=== PATIENT | female | born 1990 | race Caucasian/White ===

== ENCOUNTER → 2016-11-19 | Outpatient (CLI) | payer OTHER ==
[~2016-11-19] MED LIST: ACET50TA PO; DOCU10ELUD OR; FOLI20CA PO; IBUP80TA PO; KEPP1000 PO; MOM30SS OR; PRENTAB74 PO; [UNRECOGNIZED DRUG - OTHER] PO
[2016-11-19 14:23] LABS: BASO % 0.3 % (0.0-1.0); EOS # 0.1 K/mm3 (0.0-0.50); EOS % 0.9 % (0.0-3.0); LYMPH # 2.2 K/mm3 (1.5-6.5); LYMPH % 20.2 % (24.0-44.0); MEAN CORPUSCULAR HEMOGLOBIN 27.9 pg (27.0-33.0); MEAN CORPUSCULAR HGB CONC 33.2 g/dl (32.0-36.5); MEAN CORPUSCULAR VOLUME 84.1 fl (80.0-96.0); MONO # 0.4 K/mm3 (0.0-0.8); MONO % 3.2 % (0.0-5.0); NEUTROPHILS # 8.1 K/mm3 (1.8-7.7); NEUTROPHILS % 73.3 % (36.0-66.0); RED CELL DISTRIBUTION WIDTH 14.1 % (11.5-14.5); WHITE BLOOD COUNT 11.1 K/mm3 (4.0-10.0)
== END ==
LOC: M LAB 12:49
PROVIDERS: ATTEND Obstetrics & Gynecology
DX: O09.893 Supervision of other high risk pregnancies, third trimester (principal)

== ENCOUNTER → 2016-11-24 | Outpatient (CLI) | payer OTHER ==
[~2016-11-24] MED LIST changes: +IBUP-1114 PO; +QVAR0.07 IN
== END ==
LOC: M LAB 07:02
PROVIDERS: ATTEND Obstetrics & Gynecology
DX: Z34.83 Encounter for supervision of other normal pregnancy, third trimester (principal)

== ENCOUNTER 2016-11-26 11:14 | Inpatient (IN) | payer OTHER ==
[2016-11-26] VITALS (15 sets, daily range): BP systolic 92–122; BP diastolic 54–81
[~2016-11-26] VITALS: Ht 165.1 cm; Wt 110.0 kg
[~2016-11-26 11:14] MED LIST changes: -IBUP-1114 PO; -QVAR0.07 IN
[2016-11-26] MEDS ORDERED: LACTATED RINGER'S 1000 ML IV STA (11:19)
[2016-11-26] MEDS ORDERED: KEPP1000 PO ×2 (11:33)
[2016-11-26 12:13] LABS: BASO # 0.2 K/mm3 (0.0-0.2); BASO % 1.3 % (0.0-1.0); EOS # 0.1 K/mm3 (0.0-0.50); EOS % 0.9 % (0.0-3.0); LARGE UNSTAINED CELL # 0.4 K/mm3 (0.0-0.4); LARGE UNSTAINED CELL % 2.7 % (0.0-4.0); LYMPH # 2.9 K/mm3 (1.5-6.5); LYMPH % 19.2 % (24.0-44.0); MEAN CORPUSCULAR HEMOGLOBIN 27.7 pg (27.0-33.0); MEAN CORPUSCULAR HGB CONC 34.6 g/dl (32.0-36.5); MONO # 0.8 K/mm3 (0.0-0.8); MONO % 5.9 % (0.0-5.0); NEUTROPHILS # 9.2 K/mm3 (1.8-7.7); PLATELET COUNT, AUTOMATED 159 k/mm3 (150-450); WHITE BLOOD COUNT 13.2 K/mm3 (4.0-10.0)
[2016-11-26] MEDS ORDERED: QVAR0.07 IN (12:18)
[2016-11-26] MEDS ORDERED: OXYTOCIN DRIP 30 UNITS in APPROPRIATE DILUENT 1 EA IV SCH (12:30)
[2016-11-26] MEDS: LR 1,000 ML IV SCH (12:32)
[2016-11-26] MEDS ORDERED: ACETAMINOPHEN 500 MG TAB PO PRN (12:45)
--- NOTE | 2016-11-26 13:25 | HPE ---
DATE OF ADMISSION: 11/26/2016 Cici is a 26-year-old female, 3, para 2-0-0-2, with an estimated date of confinement (EDC) of 12/15/2016, 37-2/7 weeks gestation, who presented to labor and deliver after being seen in the office with gross rupture of membrane. As per the patient, her water broke approximately 9 o'clock. She denies any bleeding. She is having contractions. Good movement. Her records reviewed. Patient has a history of epilepsy. No known attack during this . She is currently on Keppra. Patient also has a history of asthma for which she is on as needed inhalers. Her labs reviewed. Blood type is O+, rubella immune, hepatitis negative, HIV negative. GC, chlamydia negative. 1-hour sugar testing was abnormal at 148. Her 3 hours was within normal limits. Her GBS is negative. PAST MEDICAL HISTORY: Significant for: 1. Seizure disorder. 2. Asthma. SOCIAL HISTORY: She denies any alcohol, drugs or cigarette smoking. REVIEW OF SYSTEMS: Unremarkable. MEDICATION: - vitamin - Keppra - albuterol as needed ALLERGIES: To PENICILLIN. PHYSICAL EXAMINATION: Blood pressure is 114/81, pulse 126, respiration 18, temperature 98.6. Normal appearing, obese female in no acute distress. Abdomen: Soft, nontender, nondistended. Extremities: No clubbing, cyanosis or edema. Vaginal exam: Gross rupture of membrane, 2-3 cm dilated, 60% effaced, fetus at vertex position. Tracing reviewed. Category 1 tracing. ASSESSMENT: 1. Intrauterine at 37-2/7 weeks gestation. 2. Spontaneous rupture of membrane. 3. Early labor. PLAN: Admit to labor and delivery. Routine lab sent. Keptra level was 16, which was within normal limit. Monitor. Anticipate delivery. MTDD
--- NOTE | 2016-11-26 16:24 | IPNPDOC ---
Date/Time Seen The patient was seen on 11/26/16 at 16:19. Progress Note SUBJECTIVE: Patient is comfortable. Sitting up in bed with family members present at the bedside. OBJECTIVE: See vital signs below. heart rate baseline 140, moderate variability, positive accelerations, variable deceleration noted. Contractions are every 3-8 minutes. Leaking clear fluid. Pitocin is at 12 mU/m. Assessment: Intrauterine at 37 weeks and 2 days, spontaneous rupture of membranes, not in active labor Plan: Continue with Pitocin augmentation. Patient may have epidural for pain management when she desires. Anticipate cervical change and spontaneous vaginal delivery. VS, I&O, 24H, Fishbone VS, I&O, 24H, Fishbone Vital Signs Date Time Temp Pulse Resp B/P Pulse Ox O2 Delivery O2 Flow Rate FiO2 11/26/16 14:50 97.6 90 18 107/64 Laboratory Tests 2 11/26/16 11:16: Serology Scanned Report Hepatitis B Testing 11/26/16 11:46: White Blood Count 13.2H, Red Blood Count 4.38, Hemoglobin 12.1, Hematocrit 35.0L , Mean Corpuscular Volume 80.0, Mean Corpuscular Hemoglobin 27.7, Mean Corpuscular Hemoglobin Concent 34.6, Red Cell Distribution Width 15.0H, Platelet Count 159, Neutrophils (%) (Auto) 70.0H, Lymphocytes (%) (Auto) 19.2L, Monocytes (%) (Auto) 5.9H, Eosinophils (%) (Auto) 0.9, Basophils (%) (Auto) 1.3H , Neutrophils # (Auto) 9.2H, Lymphocytes # (Auto) 2.9, Monocytes # (Auto) 0.8, Eosinophils # (Auto) 0.1, Basophils # (Auto) 0.2, Large Unclassified Cells # 0.4 , Large Unclassified Cells % 2.7, Syphilis Serology NONREACTIVE Laboratory Tests 11/26/16 11:46 Red Blood Count 4.38, Mean Corpuscular Volume 80.0, Mean Corpuscular Hemoglobin 27.7, Mean Corpuscular Hemoglobin Concent 34.6, Red Cell Distribution Width 15.0 H, Neutrophils (%) (Auto) 70.0 H, Lymphocytes (%) (Auto) 19.2 L, Monocytes (%) (Auto) 5.9 H, Eosinophils (%) (Auto) 0.9, Basophils (%) (Auto) 1.3 H, Neutrophils # (Auto) 9.2 H, Lymphocytes # (Auto) 2.9, Monocytes # (Auto) 0.8, Eosinophils # (Auto) 0.1, Basophils # (Auto) 0.2 GAURAV LU CNM Nov 26, 2016 16:24
[2016-11-26] MEDS ORDERED: miSOPROStol 50 MCG 1/2 TAB (S0191) PV ONE (18:45)
--- NOTE | 2016-11-26 19:00 | IPNPDOC ---
Date/Time Seen The patient was seen on 11/26/16 at 18:53. Progress Note SUBJECTIVE: The patient reports that she is comfortable. She reports feeling occasional contractions. OBJECTIVE: Vital signs below. Pitocin is at 18 mU/min. Sterile vaginal exam done. Cervix remains 2-3 cm 50% effaced. No changes been made. heart rate baseline is 140 bpm, moderate variability, positive accelerations, occasional late decelerations when patient is on her back. No decelerations noted when patient is on her side or sitting up. Contractions are every 2-7 minutes. Assessment: Intrauterine at 37 weeks and 2 days, category 2 tracing, spontaneous rupture of membrane, not in active labor. Plan: Orders to stop Pitocin via IV and start misoprostol by mouth ordered. IV saline locked. Regular diet ordered. Reviewed plan of care with patient and patient agrees with plan. Anticipate cervical ripening. VS, I&O, 24H, Fishbone VS, I&O, 24H, Fishbone Vital Signs Date Time Temp Pulse Resp B/P Pulse Ox O2 Delivery O2 Flow Rate FiO2 11/26/16 18:30 97.9 100 18 106/62 GAURAV LU CNM Nov 26, 2016 19:00
[2016-11-26] MEDS: miSOPROStol 50 MCG 1/2 TAB (S0191) PO SCH ×2 (19:11→23:22)
[2016-11-26] MEDS: levETIRAcetam 250MG TABLET (KEPPRA) PO SCH (21:07)
[2016-11-27] VITALS (15 sets, daily range): BP systolic 98–143; BP diastolic 52–91
[2016-11-27] MEDS: miSOPROStol 50 MCG 1/2 TAB (S0191) PO SCH (03:27)
[2016-11-27] MEDS ORDERED: BUTORPHANOL 2 MG/ML INJ (J0595) IV ONE (05:00)
[2016-11-27] MEDS ORDERED: PROMETHAZINE INJ 25 MG/ML VIAL (J2550) IV ONE (05:00)
[2016-11-27] MEDS ORDERED: FENTANYL 2MCG/ML ROPIVACAINE 0.2% NACL 250 ML CADD As Ordered ONE (07:43)
[2016-11-27] MEDS ORDERED: OXYTOCIN DRIP 30 UNITS in APPROPRIATE DILUENT 1 EA IV SCH (07:45)
[2016-11-27] MEDS: LR 1,000 ML IV SCH (08:06)
[2016-11-27] MEDS: PRENATAL VITAMIN TAB PO SCH (09:00)
--- NOTE | 2016-11-27 09:02 | IPNPDOC ---
Date/Time Seen The patient was seen on 11/27/16 at 0730. Progress Note SUBJECTIVE: Patient reports she is uncomfortable and would like her epidural. OBJECTIVE: See vital signs below. Vaginal exam 4 cm 100% effaced -2 station. heart rate baseline 130 bpm with early decelerations noted. Moderate variability. Contractions every 3-7 minutes. Assessment: Intrauterine at 37 weeks and 3 days, category 1 tracing, active labor Plan: Patient to receive epidural for pain management her request. Pitocin to be initiated her order. Anticipate vaginal delivery. VS, I&O, 24H, Fishbone VS, I&O, 24H, Fishbone Vital Signs Date Time Temp Pulse Resp B/P Pulse Ox O2 Delivery O2 Flow Rate FiO2 11/27/16 07:13 97.6 95 16 143/91 I&O- Last 24 Hours up to 6 AM 11/27/16 06:00 Intake Total 75 ml Output Total 100 ml Balance -25 ml Laboratory Tests 2 11/26/16 11:16: Serology Scanned Report Hepatitis B Testing 11/26/16 11:46: White Blood Count 13.2H, Red Blood Count 4.38, Hemoglobin 12.1, Hematocrit 35.0L , Mean Corpuscular Volume 80.0, Mean Corpuscular Hemoglobin 27.7, Mean Corpuscular Hemoglobin Concent 34.6, Red Cell Distribution Width 15.0H, Platelet Count 159, Neutrophils (%) (Auto) 70.0H, Lymphocytes (%) (Auto) 19.2L, Monocytes (%) (Auto) 5.9H, Eosinophils (%) (Auto) 0.9, Basophils (%) (Auto) 1.3H , Neutrophils # (Auto) 9.2H, Lymphocytes # (Auto) 2.9, Monocytes # (Auto) 0.8, Eosinophils # (Auto) 0.1, Basophils # (Auto) 0.2, Large Unclassified Cells # 0.4 , Large Unclassified Cells % 2.7, Syphilis Serology NONREACTIVE Laboratory Tests 11/26/16 11:46 Red Blood Count 4.38, Mean Corpuscular Volume 80.0, Mean Corpuscular Hemoglobin 27.7, Mean Corpuscular Hemoglobin Concent 34.6, Red Cell Distribution Width 15.0 H, Neutrophils (%) (Auto) 70.0 H, Lymphocytes (%) (Auto) 19.2 L, Monocytes (%) (Auto) 5.9 H, Eosinophils (%) (Auto) 0.9, Basophils (%) (Auto) 1.3 H, Neutrophils # (Auto) 9.2 H, Lymphocytes # (Auto) 2.9, Monocytes # (Auto) 0.8, Eosinophils # (Auto) 0.1, Basophils # (Auto) 0.2 GAURAV LU CNM Nov 27, 2016 09:02
[2016-11-27] MEDS ORDERED: RHOGAM 300 MCG (1500 IU) INJ (J2790) IM SCH (09:15)
[2016-11-27] MEDS ORDERED: MEASLES,MUMPS,RUBELLA VACCINE INJ (MMR-II) (90707) SC SCH (09:15)
[2016-11-27] MEDS ORDERED: ACETAMINOPHEN 500 MG TAB PO PRN (09:15)
[2016-11-27] MEDS ORDERED: DOCUSATE SODIUM 100 MG CAP PO PRN (09:15)
[2016-11-27] MEDS ORDERED: DIBUCAINE 1% OINTMENT 30GM TOP PRN (09:15)
[2016-11-27] MEDS ORDERED: METHYLERGONOVINE MALEATE 0.2 MG TAB PO PRN (09:15)
--- NOTE | 2016-11-27 09:15 | DNPDOC ---
Delivery Note Delivery Note Cici is a 26-year-old 3 para 3003 who is 37 weeks and 3 days gestation. She was admitted to labor and delivery on the with spontaneous ruptured membranes at 09 100 with clear fluid. She progressed to fully dilated at 8:22 AM with the use of misoprostol and Pitocin. She pushed to a live infant male at 08 28 in the OA position with restitution to LOT. No nuchal cord was noted. The baby was placed on the maternal abdomen crying. The cord was clamped 2 after pulsation ceased and cut by father of the baby. 3 vessels noted. Cord blood obtained. The placenta delivered spontaneously and intact at 08 34 via Graham mechanism. Uterine hemostasis was achieved by rapid infusion of IV Pitocin and fundal massage. The perineum was inspected and found to be intact. EBL 300. Baby at 89 and weighed 7 lbs. 1 oz., 3194 g. The baby's name is Dennys. Mom will be bottle feeding baby. Both mom and baby are stable. GAURAV LU CNM Nov 27, 2016 09:15
[2016-11-27] MEDS: levETIRAcetam 250MG TABLET (KEPPRA) PO SCH ×2 (09:36→20:58)
[2016-11-27] MEDS: IBUPROFEN 800 MG TAB PO PRN (16:21)
[2016-11-28 05:49] VITALS: BP 134/72
[2016-11-28] MEDS: PRENATAL VITAMIN TAB PO SCH (09:00)
[2016-11-28] MEDS: levETIRAcetam 250MG TABLET (KEPPRA) PO SCH ×2 (09:04→20:31)
[2016-11-28] MEDS: IBUPROFEN 800 MG TAB PO PRN ×2 (09:09→17:38)
[2016-11-28 18:00] VITALS: BP 134/73
[2016-11-29 06:00] VITALS: BP 130/83
[2016-11-29] MEDS: IBUPROFEN 800 MG TAB PO PRN (06:00)
[2016-11-29] MEDS: PRENATAL VITAMIN TAB PO SCH (08:13)
[2016-11-29] MEDS: levETIRAcetam 250MG TABLET (KEPPRA) PO SCH (08:13)
[2016-11-29] MEDS ORDERED: ACET50TA PO (10:23)
[2016-11-29] MEDS ORDERED: IBUP-1114 PO (10:23)
== END 2016-11-29 11:00 | disposition home or self-care (01) | DRG 560 ==
LOC: M LDI 11:14 → M OBS 11-27 10:32
PROVIDERS: ADMIT Obstetrics & Gynecology; ATTEND Obstetrics & Gynecology
PROC: 10E0XZZ Delivery of Products of Conception, External Approach (ICD-10-PCS; principal; 2016-11-27)
DX: O99.354 Diseases of the nervous system complicating childbirth (principal); Z3A.37 37 weeks gestation of pregnancy; Z88.0 Allergy status to penicillin; G40.909 Epilepsy, unspecified, not intractable, without status epilepticus; Z37.0 Single live birth

== ENCOUNTER 2016-12-12 05:01 | Emergency (ER) | payer OTHER ==
[~2016-12-12 05:01] MED LIST changes: +IBUP-1114 PO; +QVAR0.07 IN
[2016-12-12] MEDS ORDERED: levETIRAcetam 250MG TABLET (KEPPRA) As Ordered ONE (07:12)
--- NOTE | 2016-12-12 08:10 | REPUSA ---
CLINICAL HISTORY: LEFT FLANK PAIN TECHNIQUE: Multiple axial, sagittal and coronal CT images were obtained through the abdomen and pelvi s without administration of oral or IV contrast material. COMMENTS: The liver is of uniform attenuation without mass or defect. There is no intra or extrahepatic biliary ductal dilatation. The spleen is normal. The gallbladder is within normal limits. The pancreas is of normal contour and attenuation characteristics. There is no evidence of adrenal mass. The kidneys are normal in size, shape and configuration. No right renal or ureteral calculi are ident ified. 6 x 4 mm left UVJ calculus is noted producing mild to moderate hydroureteronephrosis. 2 mm non obstructing calculus is noted in the mid pole of left kidney. There is no evidence for appendicitis. There is no bowel wall thickening. No evidence for small or la rge bowel obstruction. There is no evidence of abdominal ascites or lymphadenopathy. There is no evidence of intrinsic or extrinsic bladder mass. There is no pelvic ascites or lymphadeno sachin. The uterus is bulky. Ovaries are WNL. Images of the lung bases show no evidence of pleural or parenchymal mass. There are no pleural effusi ons. The bony structures are free of lytic or blastic lesions. IMPRESSION: 6 x 4 mm left UVJ calculus is noted producing mild to moderate hydroureteronephrosis. 2 mm nonobstructing calculus is noted in the mid pole of left kidney. Thank you for your kind referral of this patient.
--- NOTE | 2016-12-12 08:45 | EDDOCDS ---
Nurse's Notes [facility] Name: Cici Curry Age: 26 yrs Sex: Female : 1990 Arrival Date: 12/12/2016 Time: 05:01 Bed 12 Private MD: Diagnosis: Unspecified renal colic-6X4mm left UVJ Presentation: 12/12 05:27 Presenting complaint: Patient states: 15 days post . Has had diarrhea since km delivery. This morning is having left flank and left groin pain. Burning on urination. Urgency of urination. Suicide/Homicide risk assessment- the patient denies having any suicidal and/or homicidal ideations and does not present with any other emotional, behavioral or mental health complaints. 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 Transition of care: patient was not received from another setting of care. 05:27 Acuity: HÉCTOR Level 4 [facility] 05:27 Method Of Arrival: Walkin/Carried/Asstd [facility] 07:15 Adult Sepsis Screening: The patient does not have new or worsening altered mentation. pml Patient's respiratory rate is less than 22. Systolic blood pressure is greater than 100. Patient has a qSOFA score of 0- Negative Sepsis Screen. Triage Assessment: 05:33 General: Appears in no apparent distress, comfortable, Behavior is appropriate for age, kmg1 cooperative, pleasant. Pain: Location: left flank and left lower quadrant Pain currently is 5 out of 10 on a pain scale. Quality of pain is described as aching, throbbing. Pt Declines HIV testing. GI: Reports lower abdominal pain. : Reports burning with urination urgency urinary frequency. 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 Keppra 500 mg Oral tab 2 tabs in the morning and 3 tabs at night (Last dose: 12/11/2016 19:00) 2. Vitamin 27-0.8 mg Oral tab 1 tab once daily (Last dose: 12/11/2016) 3. ibuprofen 200 mg Oral tab 2 tabs every 4-6 hours (Last dose: 12/11/2016 23:00) - PMHx: Seizure Disorder; - PSHx: none; - Social history: Smoking status: Patient states was never smoker of tobacco. No barriers to communication noted, The patient speaks fluent Liberian, Speaks appropriately for age. - Family history: Not pertinent. - : The pt / caregiver states he / she is not on anticoagulants. Home medication list is obtained from the patient. - Exposure Risk Screening:: None identified. Screenin:05 Screening information is obtained from the patient. Fall risk: No risks identified. jp6 Assistance ADL's: requires no assistance with activities of daily living. Abuse/DV Screen: The patient / caregiver reports he/she is: not in a situation that causes fear, pain or injury. Nutritional screening: No deficits noted. Advance Directives: Currently, there is no health care proxy. There is no active DNR order. There is no living will. home support is adequate. Assessment: 06:05 Reassessment: Patient states feeling better. General: Appears in no apparent distress, jp6 well developed, well nourished, Behavior is appropriate for age, cooperative. Pain: Location: pelvis-anette area Pain began at approx 2330. Neurological: No deficits noted. EENT: No deficits noted. Cardiovascular: No deficits noted. Respiratory: Airway is patent Respiratory effort is even, unlabored, Respiratory pattern is regular, symmetrical, Breath sounds are clear. GI: No deficits noted. : Reports burning with urination since 2330. Derm: Skin is pink, warm & dry. Musculoskeletal: No deficits noted. 07:14 General: Appears in no apparent distress, Behavior is appropriate for age, cooperative. pml Pain: Location: back Pain currently is 2 out of 10 on a pain scale. Neurological: Level of Consciousness is awake, alert, Oriented to person, place, time. Cardiovascular: Capillary refill < 3 seconds. Respiratory: Airway is patent Respiratory effort is even, unlabored. GI: Abdomen is non- distended. Derm: Skin is pink, warm & dry. 08:20 General: resting on stretcher, no apparent distress. resps easy and unlabored, skin pml p/w/d. . 08:43 General: Appears in no apparent distress, Behavior is appropriate for age, cooperative. pml Pain: Location: back Pain currently is 2 out of 10 on a pain scale. Neurological: Level of Consciousness is awake, alert, Oriented to person, place, time. Cardiovascular: Capillary refill < 3 seconds. Respiratory: Airway is patent Respiratory effort is even, unlabored. GI: Abdomen is non- distended. Derm: Skin is pink, warm & dry. Vital Signs: 05:33 BP 115 / 75; Pulse 87; Resp 16; Temp 96.9(O); Pulse Ox 97% on R/A; Weight 95.71 kg; [facility] Height 5 ft. 5 in. (165.10 cm); Pain 5/10; 08:40 BP 135 / 79; Pulse 76; Resp 18; Pulse Ox 99% on R/A; Pain 0/10; jjr 05:33 Body Mass Index 35.11 (95.71 kg, 165.10 cm) [facility] Vitals: 05:33 Log In Time: December 12, 2016 at 05:04. [facility] ED Course: 05:03 Patient visited by Gissell Tate Reg. hs2 05:03 Patient moved to Waiting hs2 05:30 Triage Initiated [facility] 05:39 Patient moved to 12 km 05:42 Gita Beyer,RN is Primary Nurse. jp6 06:05 Patient visited by Gita Beyer RN. jp6 06:37 Urine Culture Sent. jp6 06:37 UA Sent. jp6 06:52 Urine collected. Clean catch specimen. Urine specimen sent to lab. jp6 07:04 Tamiko Stevenson RN is Primary Nurse. pml 07:14 Renetta Jones MD is Attending Physician. fg 07:14 The patient / caregiver is instructed regarding the plan of care and ED course. Patient pml has correct armband on for positive identification. Placed in gown. Bed in low position. Call light in reach. Side rails up X2. 07:15 Patient visited by Tamiko Stevenson RN. pml 07:18 Claude Gill PA-C is PHCP. cc10 07:19 Renetta Jones MD is Attending Physician. cc10 07:23 Patient visited by Claude Gill PA-C. cc10 07:23 Patient visited by Claude Gill PA-C. cc10 08:11 [facility] Payment Agreement was scanned into [employer] and attached to record. mm15 08:17 CT ABD & PELVIS: No Contrast Returned. EDMS 08:25 Tiago Ponce is Referral Physician. cc10 08:43 No IV's were initiated during this patient's visit. No procedures done that require pml assistance. Administered Medications: 07:20 Drug: levETIRAcetam 1000 mg [levetiracetam 250 mg tablet (4 tabs)] Route: PO; pml Order Results: Lab Order: UA; SPEC'M 12/12/16 06:35 Test: APPEARANCE, URINE; Value: CLEAR; Range: CLEAR; Status: F Test: COLOR, URINE; Value: YELLOW; Range: YELLOW; Status: F Test: PH,URINE; Value: 6.0; Range: 5.0-9.0; Units: UNITS; Status: F Test: SPECIFIC GRAVITY URINE AUTO; Value: 1.009; Range: 1.002-1.035; Status: F Test: PROTEIN, URINE AUTO; Value: NEGATIVE; Range: NEGATIVE; Units: mg/dL; Status: F Test: GLUCOSE, URINE (UA) AUTO; Value: NEGATIVE; Range: NEGATIVE; Units: mg/dL; Status: F Test: KETONE, URINE AUTO; Value: NEGATIVE; Range: NEGATIVE; Units: mg/dL; Status: F Test: UROBILINOGEN, URINE AUTO; Value: 0.2; Range: 0.0-2.0; Units: mg/dL; Status: F Test: BILIRUBIN, URINE AUTO; Value: NEGATIVE; Range: NEGATIVE; Status: F Test: NITRITE, URINE AUTO; Value: NEGATIVE; Range: NEGATIVE; Status: F Test: LEUKOCYTE ESTERASE, URINE AUTO; Value: NEGATIVE; Range: NEGATIVE; Status: F Test: BLOOD, URINE BLOOD; Value: 2+; Range: NEGATIVE; Abnormal: Above high normal; Status: F Test: WBC, URINE AUTO; Value: 2; Range: 0-3; Units: /HPF; Status: F Test: RBC, URINE AUTO; Value: 2; Range: 0-3; Units: /HPF; Status: F Test: BACTERIA, URINE AUTO; Value: NEGATIVE; Range: NEGATIVE; Status: F Test: SQUAMOUS EPITHELIAL CELL UR AU; Value: 0; Range: 0-6; Units: /HPF; Status: F Test: MUCUS, URINE; Value: SMALL; Range: NEGATIVE; Status: F Test: HYALINE CAST, URINE AUTO; Value: 0; Range: 0-1; Units: /LPF; Status: F Radiology Order: CT ABD & PELVIS: No Contrast Test: CT ABD & PELVIS: No Contrast REASON FOR EXAMINATION: Renal colic; ; CLINICAL HISTORY: LEFT FLANK PAIN; TECHNIQUE: Multiple axial, sagittal and coronal CT images were obtained through the abdomen and pelvi; s without administration of oral or IV contrast material.; COMMENTS:; The liver is of uniform attenuation without mass or defect. There is no intra or extrahepatic biliary; ductal dilatation. The spleen is normal. The gallbladder is within normal limits. The pancreas is of; normal contour and attenuation characteristics. There is no evidence of adrenal mass.; The kidneys are normal in size, shape and configuration. No right renal or ureteral calculi are ident; ified. 6 x 4 mm left UVJ calculus is noted producing mild to moderate hydroureteronephrosis. 2 mm non; obstructing calculus is noted in the mid pole of left kidney.; There is no evidence for appendicitis. There is no bowel wall thickening. No evidence for small or la; rge bowel obstruction. There is no evidence of abdominal ascites or lymphadenopathy.; There is no evidence of intrinsic or extrinsic bladder mass. There is no pelvic ascites or lymphadeno; sachin. The uterus is bulky. Ovaries are WNL.; Images of the lung bases show no evidence of pleural or parenchymal mass. There are no pleural effusi; ons.; The bony structures are free of lytic or blastic lesions.; IMPRESSION:; 6 x 4 mm left UVJ calculus is noted producing mild to moderate hydroureteronephrosis.; 2 mm nonobstructing calculus is noted in the mid pole of left kidney.; Thank you for your kind referral of this patient.; ; Outcome: 08:25 Discharge ordered by Provider. cc10 08:43 Discharge Assessment: Patient awake, alert and oriented x 3. No cognitive and/or pml functional deficits noted. Patient verbalized understanding of disposition instructions. patient administered narcotics - no. The following High Risk Discharge criteria are identified: None. Discharged to home ambulatory. Condition: good Condition: stable. Discharge instructions given to patient, Instructed on discharge instructions, follow up and referral plans. medication usage, Demonstrated understanding of instructions, medications, Pt was receptive of discharge instructions/ teaching. CT Study completed. Property sent home with patient. 08:44 Patient left the ED. pml Signatures: Dispatcher [email or web address] Andreia Serrato, RN RN kmg1 Gita Grimes, RN RN jjr Tamiko Stevenson,RN RN Vera Armenta mm15 Claude Gill PA-C PA-C cc10 Renetta Jones MD MD Gissell Tate, [facility] Reg hs2 Gita Beyer,RN RN jp6 MTDD
--- NOTE | 2016-12-12 08:45 | EDDOCDS ---
Physician Documentation [facility] Name: Cici Curry Age: 26 yrs Sex: Female : 1990 Arrival Date: 12/12/2016 Time: 05:01 Bed 12 Private MD: Disposition: 12/12/16 08:25 Discharged to Home/Self Care. Impression: Unspecified renal colic - 6X4mm left UVJ. - Condition is Stable. - Discharge Instructions: Kidney Stones. - Prescriptions for Ultram 50 mg Oral Tablet - take 1 tablet by ORAL route every 6 hours As needed MDD: 4 tabs; 12 tablet. Flomax 0.4 mg Oral Capsule, Sust. Release 24 hr - take 1 capsule by ORAL route once daily 1/2 hour following the same meal each day; 30 capsule. ZOFRAN ODT 4 mg - dissolve 1 tablet by ORAL route 4 times per day As needed do not chew, do not swallow whole; 10 tablet. - Medication Reconciliation form. - Follow up: Tiago Ponce; When: Call to arrange an appointment; Reason: Wound/Symptom Recheck, Recheck today's complaints, Worsening of conditions, Continuance of care. - Problem is new. - Symptoms are resolved. Historical: - Allergies: PENICILLINS (Rash); Amoxicillinthroat closes up; - Home Meds: 1. Keppra 500 mg Oral tab 2 tabs in the morning and 3 tabs at night (Last dose: 12/11/2016 19:00) 2. Vitamin 27-0.8 mg Oral tab 1 tab once daily (Last dose: 12/11/2016) 3. ibuprofen 200 mg Oral tab 2 tabs every 4-6 hours (Last dose: 12/11/2016 23:00) - PMHx: Seizure Disorder; - PSHx: none; - Social history: Smoking status: Patient states was never smoker of tobacco. No barriers to communication noted, The patient speaks fluent Kazakh, Speaks appropriately for age. - Family history: Not pertinent. - : The pt / caregiver states he / she is not on anticoagulants. Home medication list is obtained from the patient. - Exposure Risk Screening:: None identified. 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 5 in. (165.10 cm); Pain 5/10; 08:40 BP 135 / 79; Pulse 76; Resp 18; Pulse Ox 99% on R/A; Pain 0/10; jjr 05:33 Body Mass Index 35.11 (95.71 kg, 165.10 cm) km MDM: 06:03 UA Ordered. EDMS 06:03 Urine Culture Ordered. EDMS 07:20 levETIRAcetam 1000 mg PO once ordered. pml 07:30 CT ABD & PELVIS: No Contrast Ordered. EDMS 08:03 Financial registration complete. mm15 08:11 [facility] Payment Agreement was scanned into [employer] and attached to record. mm15 08:18 UA Reviewed. cc10 08:18 CT ABD & PELVIS: No Contrast Reviewed. cc10 08:29 Misc. Nursing Order ordered. cc10 Administered Medications: 07:20 Drug: levETIRAcetam 1000 mg [levetiracetam 250 mg tablet (4 tabs)] Route: PO; pml Signatures: Dispatcher [employer] EDMS Andreia Ya RN RN kmg1 Tamiko Stevenson,RN RN pml Vera Wray mm15 Claude Gill PA-C PA-Rachna cc10 Gita Beyer RN RN jp6 The chart was reviewed and I authenticate all verbal orders and agree with the evaluation and treatment provided.Attachments: 08:11 [facility] Payment Agreement mm15 MTDD
--- NOTE | 2016-12-14 09:45 | EDDOCDS ---
Physician Documentation [facility] Name: Cici Curry Age: 26 yrs Sex: Female : 1990 Arrival Date: 12/12/2016 Time: 05:01 Bed 12 Private MD: Disposition: 12/12/16 08:25 Discharged to Home/Self Care. Impression: Unspecified renal colic - 6X4mm left UVJ. - Condition is Stable. - Discharge Instructions: Kidney Stones. - Prescriptions for Ultram 50 mg Oral Tablet - take 1 tablet by ORAL route every 6 hours As needed MDD: 4 tabs; 12 tablet. Flomax 0.4 mg Oral Capsule, Sust. Release 24 hr - take 1 capsule by ORAL route once daily 1/2 hour following the same meal each day; 30 capsule. ZOFRAN ODT 4 mg - dissolve 1 tablet by ORAL route 4 times per day As needed do not chew, do not swallow whole; 10 tablet. - Medication Reconciliation form. - Follow up: Tiago Ponce; When: Call to arrange an appointment; Reason: Wound/Symptom Recheck, Recheck today's complaints, Worsening of conditions, Continuance of care. - Problem is new. - Symptoms are resolved. Historical: - Allergies: PENICILLINS (Rash); Amoxicillinthroat closes up; - Home Meds: 1. Keppra 500 mg Oral tab 2 tabs in the morning and 3 tabs at night (Last dose: 12/11/2016 19:00) 2. Vitamin 27-0.8 mg Oral tab 1 tab once daily (Last dose: 12/11/2016) 3. ibuprofen 200 mg Oral tab 2 tabs every 4-6 hours (Last dose: 12/11/2016 23:00) - PMHx: Seizure Disorder; - PSHx: none; - Social history: Smoking status: Patient states was never smoker of tobacco. No barriers to communication noted, The patient speaks fluent Turkish, Speaks appropriately for age. - Family history: Not pertinent. - : The pt / caregiver states he / she is not on anticoagulants. Home medication list is obtained from the patient. - Exposure Risk Screening:: None identified. 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 5 in. (165.10 cm); Pain 5/10; 08:40 BP 135 / 79; Pulse 76; Resp 18; Pulse Ox 99% on R/A; Pain 0/10; jjr 05:33 Body Mass Index 35.11 (95.71 kg, 165.10 cm) km MDM: 06:03 UA Ordered. EDMS 06:03 Urine Culture Ordered. EDMS 07:20 levETIRAcetam 1000 mg PO once ordered. pml 07:30 CT ABD & PELVIS: No Contrast Ordered. EDMS 08:03 Financial registration complete. mm15 08:11 [facility] Payment Agreement was scanned into [email or web address] and attached to record. mm15 08:18 UA Reviewed. cc10 08:18 CT ABD & PELVIS: No Contrast Reviewed. cc10 08:29 Misc. Nursing Order ordered. cc10 22:36 T-Sheet-- Draft Copy was scanned into [email or web address] and attached to record. klr Administered Medications: 07:20 Drug: levETIRAcetam 1000 mg [levetiracetam 250 mg tablet (4 tabs)] Route: PO; pml Signatures: Dispatcher [employer] EDMS Andreia Ya RN THANIA kmg1 Tamiko StevensonRN RN pml Vera Wray mm15 Claude Gill, PA-C PA-Rachna cc10 Gita Beyer RN RN jp6 Redder, Kathie klhattie The chart was reviewed and I authenticate all verbal orders and agree with the evaluation and treatment provided.Attachments: 08:11 [facility] Payment Agreement mm15 22:36 T-Sheet-- Draft Copy klr Chart Complete MTDD
--- NOTE | 2016-12-14 09:45 | EDDOCDS ---
Physician Documentation [facility] Name: Cici Curry Age: 26 yrs Sex: Female : 1990 Arrival Date: 12/12/2016 Time: 05:01 Bed 12 Private MD: Disposition: 12/12/16 08:25 Discharged to Home/Self Care. Impression: Unspecified renal colic - 6X4mm left UVJ. - Condition is Stable. - Discharge Instructions: Kidney Stones. - Prescriptions for Ultram 50 mg Oral Tablet - take 1 tablet by ORAL route every 6 hours As needed MDD: 4 tabs; 12 tablet. Flomax 0.4 mg Oral Capsule, Sust. Release 24 hr - take 1 capsule by ORAL route once daily 1/2 hour following the same meal each day; 30 capsule. ZOFRAN ODT 4 mg - dissolve 1 tablet by ORAL route 4 times per day As needed do not chew, do not swallow whole; 10 tablet. - Medication Reconciliation form. - Follow up: Tiago Ponce; When: Call to arrange an appointment; Reason: Wound/Symptom Recheck, Recheck today's complaints, Worsening of conditions, Continuance of care. - Problem is new. - Symptoms are resolved. Historical: - Allergies: PENICILLINS (Rash); Amoxicillinthroat closes up; - Home Meds: 1. Keppra 500 mg Oral tab 2 tabs in the morning and 3 tabs at night (Last dose: 12/11/2016 19:00) 2. Vitamin 27-0.8 mg Oral tab 1 tab once daily (Last dose: 12/11/2016) 3. ibuprofen 200 mg Oral tab 2 tabs every 4-6 hours (Last dose: 12/11/2016 23:00) - PMHx: Seizure Disorder; - PSHx: none; - Social history: Smoking status: Patient states was never smoker of tobacco. No barriers to communication noted, The patient speaks fluent Japanese, Speaks appropriately for age. - Family history: Not pertinent. - : The pt / caregiver states he / she is not on anticoagulants. Home medication list is obtained from the patient. - Exposure Risk Screening:: None identified. 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 5 in. (165.10 cm); Pain 5/10; 08:40 BP 135 / 79; Pulse 76; Resp 18; Pulse Ox 99% on R/A; Pain 0/10; jjr 05:33 Body Mass Index 35.11 (95.71 kg, 165.10 cm) km MDM: 06:03 UA Ordered. EDMS 06:03 Urine Culture Ordered. EDMS 07:20 levETIRAcetam 1000 mg PO once ordered. pml 07:30 CT ABD & PELVIS: No Contrast Ordered. EDMS 08:03 Financial registration complete. mm15 08:11 [facility] Payment Agreement was scanned into [employer] and attached to record. mm15 08:18 UA Reviewed. cc10 08:18 CT ABD & PELVIS: No Contrast Reviewed. cc10 08:29 Misc. Nursing Order ordered. cc10 22:36 T-Sheet-- Draft Copy was scanned into [facility] [facility] and attached to record. klr Administered Medications: 07:20 Drug: levETIRAcetam 1000 mg [levetiracetam 250 mg tablet (4 tabs)] Route: PO; pml Signatures: Dispatcher [employer] EDMS Andreia Ya RN THANIA kmg1 Tamiko StevensonRN RN pml Vera Wray mm15 Claude Gill, PA-C PA-Rachna cc10 Gita Beyer RN RN jp6 Redder, Kathie klhattie The chart was reviewed and I authenticate all verbal orders and agree with the evaluation and treatment provided.Attachments: 08:11 [facility] Payment Agreement mm15 22:36 T-Sheet-- Draft Copy klr Chart Complete MTDD
--- NOTE | 2016-12-14 09:45 | EDDOCDS ---
Nurse's Notes [facility] Name: Cici Curry Age: 26 yrs Sex: Female : 1990 Arrival Date: 12/12/2016 Time: 05:01 Bed 12 Private MD: Diagnosis: Unspecified renal colic-6X4mm left UVJ Presentation: 12/12 05:27 Presenting complaint: Patient states: 15 days post . Has had diarrhea since km delivery. This morning is having left flank and left groin pain. Burning on urination. Urgency of urination. Suicide/Homicide risk assessment- the patient denies having any suicidal and/or homicidal ideations and does not present with any other emotional, behavioral or mental health complaints. Status: Patient is not a car servicer or dependent. Transition of care: patient was not received from another setting of care. 05:27 Acuity: [place] 4 [facility] [place] Method Of Arrival: [place] [facility] [place] Adult Sepsis Screening: The patient does not have new or worsening altered mentation. pml Patient's respiratory rate is less than 22. Systolic blood pressure is greater than 100. Patient has a qSOFA score of 0- Negative Sepsis Screen. Triage Assessment: 05:33 General: Appears in no apparent distress, comfortable, Behavior is appropriate for age, kmg1 cooperative, pleasant. Pain: Location: left flank and left lower quadrant Pain currently is 5 out of 10 on a pain scale. Quality of pain is described as aching, throbbing. Pt Declines HIV testing. GI: Reports lower abdominal pain. : Reports burning with urination urgency urinary frequency. 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 Keppra 500 mg Oral tab 2 tabs in the morning and 3 tabs at night (Last dose: 12/11/2016 19:00) 2. Vitamin 27-0.8 mg Oral tab 1 tab once daily (Last dose: 12/11/2016) 3. ibuprofen 200 mg Oral tab 2 tabs every 4-6 hours (Last dose: 12/11/2016 23:00) - PMHx: Seizure Disorder; - PSHx: none; - Social history: Smoking status: Patient states was never smoker of tobacco. No barriers to communication noted, The patient speaks fluent Moroccan, Speaks appropriately for age. - Family history: Not pertinent. - : The pt / caregiver states he / she is not on anticoagulants. Home medication list is obtained from the patient. - Exposure Risk Screening:: None identified. Screenin:05 Screening information is obtained from the patient. Fall risk: No risks identified. jp6 Assistance ADL's: requires no assistance with activities of daily living. Abuse/DV Screen: The patient / caregiver reports he/she is: not in a situation that causes fear, pain or injury. Nutritional screening: No deficits noted. Advance Directives: Currently, there is no health care proxy. There is no active DNR order. There is no living will. home support is adequate. Assessment: 06:05 Reassessment: Patient states feeling better. General: Appears in no apparent distress, jp6 well developed, well nourished, Behavior is appropriate for age, cooperative. Pain: Location: pelvis-anette area Pain began at approx 2330. Neurological: No deficits noted. EENT: No deficits noted. Cardiovascular: No deficits noted. Respiratory: Airway is patent Respiratory effort is even, unlabored, Respiratory pattern is regular, symmetrical, Breath sounds are clear. GI: No deficits noted. : Reports burning with urination since 2330. Derm: Skin is pink, warm & dry. Musculoskeletal: No deficits noted. 07:14 General: Appears in no apparent distress, Behavior is appropriate for age, cooperative. pml Pain: Location: back Pain currently is 2 out of 10 on a pain scale. Neurological: Level of Consciousness is awake, alert, Oriented to person, place, time. Cardiovascular: Capillary refill < 3 seconds. Respiratory: Airway is patent Respiratory effort is even, unlabored. GI: Abdomen is non- distended. Derm: Skin is pink, warm & dry. 08:20 General: resting on stretcher, no apparent distress. resps easy and unlabored, skin pml p/w/d. . 08:43 General: Appears in no apparent distress, Behavior is appropriate for age, cooperative. pml Pain: Location: back Pain currently is 2 out of 10 on a pain scale. Neurological: Level of Consciousness is awake, alert, Oriented to person, place, time. Cardiovascular: Capillary refill < 3 seconds. Respiratory: Airway is patent Respiratory effort is even, unlabored. GI: Abdomen is non- distended. Derm: Skin is pink, warm & dry. Vital Signs: 05:33 BP 115 / 75; Pulse 87; Resp 16; Temp 96.9(O); Pulse Ox 97% on R/A; Weight 95.71 kg; [facility] [place] Height 5 ft. 5 in. (165.10 cm); Pain 5/10; 08:40 BP 135 / 79; Pulse 76; Resp 18; Pulse Ox 99% on R/A; Pain 0/10; jjr 05:33 Body Mass Index 35.11 (95.71 kg, 165.10 cm) [facility] [place]als: 05:33 Log In Time: December 12, 2016 at 05:04. [facility] [place] Course: 05:03 Patient visited by Gissell Tate Reg. hs2 05:03 Patient moved to Waiting hs2 05:30 [place]riage Initiated [facility] [place]:39 Patient moved to 12 km 05:42 Gita Beyer,RN is Primary Nurse. jp6 06:05 Patient visited by Gita Beyer RN. jp6 06:37 Urine Culture Sent. jp6 06:37 UA Sent. jp6 06:52 Urine collected. Clean catch specimen. Urine specimen sent to lab. jp6 07:04 Tamiko Stevenson RN is Primary Nurse. pml 07:14 Renetta Jones MD is Attending Physician. fg 07:14 The patient / caregiver is instructed regarding the plan of care and ED course. Patient pml has correct armband on for positive identification. Placed in gown. Bed in low position. Call light in reach. Side rails up X2. 07:15 Patient visited by Tamiko Stevenson RN. pml 07:18 Claude Gill PA-C is PHCP. cc10 07:19 Renetta Jones MD is Attending Physician. cc10 07:23 Patient visited by Claude iGll PA-C. cc10 07:23 Patient visited by Claude Gill PA-C. cc10 08:11 [facility] Payment Agreement was scanned into [employer] and attached to record. mm15 08:17 CT ABD & PELVIS: No Contrast Returned. EDMS 08:25 Tiago Ponce is Referral Physician. cc10 08:43 No IV's were initiated during this patient's visit. No procedures done that require pml assistance. 22:36 T-Sheet-- Draft Copy was scanned into [employer] and attached to record. klr Administered Medications: 07:20 Drug: levETIRAcetam 1000 mg [levetiracetam 250 mg tablet (4 tabs)] Route: PO; pml Order Results: Lab Order: UA; SPEC'M 12/12/16 06:35 Test: APPEARANCE, URINE; Value: CLEAR; Range: CLEAR; Status: F Test: COLOR, URINE; Value: YELLOW; Range: YELLOW; Status: F Test: PH,URINE; Value: 6.0; Range: 5.0-9.0; Units: UNITS; Status: F Test: SPECIFIC GRAVITY URINE AUTO; Value: 1.009; Range: 1.002-1.035; Status: F Test: PROTEIN, URINE AUTO; Value: NEGATIVE; Range: NEGATIVE; Units: mg/dL; Status: F Test: GLUCOSE, URINE (UA) AUTO; Value: NEGATIVE; Range: NEGATIVE; Units: mg/dL; Status: F Test: KETONE, URINE AUTO; Value: NEGATIVE; Range: NEGATIVE; Units: mg/dL; Status: F Test: UROBILINOGEN, URINE AUTO; Value: 0.2; Range: 0.0-2.0; Units: mg/dL; Status: F Test: BILIRUBIN, URINE AUTO; Value: NEGATIVE; Range: NEGATIVE; Status: F Test: NITRITE, URINE AUTO; Value: NEGATIVE; Range: NEGATIVE; Status: F Test: LEUKOCYTE ESTERASE, URINE AUTO; Value: NEGATIVE; Range: NEGATIVE; Status: F Test: BLOOD, URINE BLOOD; Value: 2+; Range: NEGATIVE; Abnormal: Above high normal; Status: F Test: WBC, URINE AUTO; Value: 2; Range: 0-3; Units: /HPF; Status: F Test: RBC, URINE AUTO; Value: 2; Range: 0-3; Units: /HPF; Status: F Test: BACTERIA, URINE AUTO; Value: NEGATIVE; Range: NEGATIVE; Status: F Test: SQUAMOUS EPITHELIAL CELL UR AU; Value: 0; Range: 0-6; Units: /HPF; Status: F Test: MUCUS, URINE; Value: SMALL; Range: NEGATIVE; Status: F Test: HYALINE CAST, URINE AUTO; Value: 0; Range: 0-1; Units: /LPF; Status: F Lab Order: Urine Culture; SPEC'M 12/12/16 06:34 Test: URINE CULTURE; Value: <EXTERNAL COMMENT eCWMed> FULL REPORT IN LAB NOTES (eCW and Medent).; Status: F Test: URINE CULTURE; Value: URINE CULTURE RESULT NO GROWTH; Status: F Radiology Order: CT ABD & PELVIS: No Contrast Test: CT ABD & PELVIS: No Contrast REASON FOR EXAMINATION: Renal colic; ; CLINICAL HISTORY: LEFT FLANK PAIN; TECHNIQUE: Multiple axial, sagittal and coronal CT images were obtained through the abdomen and pelvi; s without administration of oral or IV contrast material.; COMMENTS:; The liver is of uniform attenuation without mass or defect. There is no intra or extrahepatic biliary; ductal dilatation. The spleen is normal. The gallbladder is within normal limits. The pancreas is of; normal contour and attenuation characteristics. There is no evidence of adrenal mass.; The kidneys are normal in size, shape and configuration. No right renal or ureteral calculi are ident; ified. 6 x 4 mm left UVJ calculus is noted producing mild to moderate hydroureteronephrosis. 2 mm non; obstructing calculus is noted in the mid pole of left kidney.; There is no evidence for appendicitis. There is no bowel wall thickening. No evidence for small or la; rge bowel obstruction. There is no evidence of abdominal ascites or lymphadenopathy.; There is no evidence of intrinsic or extrinsic bladder mass. There is no pelvic ascites or lymphadeno; sachin. The uterus is bulky. Ovaries are WNL.; Images of the lung bases show no evidence of pleural or parenchymal mass. There are no pleural effusi; ons.; The bony structures are free of lytic or blastic lesions.; IMPRESSION:; 6 x 4 mm left UVJ calculus is noted producing mild to moderate hydroureteronephrosis.; 2 mm nonobstructing calculus is noted in the mid pole of left kidney.; Thank you for your kind referral of this patient.; ; Outcome: 08:25 Discharge ordered by Provider. cc10 08:43 Discharge Assessment: Patient awake, alert and oriented x 3. No cognitive and/or pml functional deficits noted. Patient verbalized understanding of disposition instructions. patient administered narcotics - no. The following High Risk Discharge criteria are identified: None. Discharged to home ambulatory. Condition: good Condition: stable. Discharge instructions given to patient, Instructed on discharge instructions, follow up and referral plans. medication usage, Demonstrated understanding of instructions, medications, Pt was receptive of discharge instructions/ teaching. CT Study completed. Property sent home with patient. 08:44 Patient left the ED. pml Signatures: Dispatcher [employer] EDMS Andreia Ya RN RN kmg1 Gita Grimes RN RN Tamiko Santana RN RN pml Vera Wray mm15 Claude Gill, PA-C PA-C cc10 Renetta Jones MD MD Gissell Tate, Reg Reg hs2 Gita Beyer RN RN jp6 Pamella Hutton Chart Complete [facility]
== END 2016-12-12 08:44 | disposition home or self-care (01) ==
LOC: M ED 05:01
DX: O90.89 Other complications of the puerperium, not elsewhere classified (principal); N20.1 Calculus of ureter; G40.909 Epilepsy, unspecified, not intractable, without status epilepticus; Z79.899 Other long term (current) drug therapy; Z88.0 Allergy status to penicillin; Z88.1 Allergy status to other antibiotic agents

== ENCOUNTER 2017-03-30 15:40 | Emergency (ER) | payer OTHER ==
[~2017-03-30] VITALS: Ht 165.1 cm; Wt 95.3 kg
[2017-03-30 15:40] VITALS: BP 128/80
== END 2017-03-30 17:20 | disposition home or self-care (01) ==
LOC: M ED 17:04
DX: G43.909 Migraine, unspecified, not intractable, without status migrainosus (principal); G40.909 Epilepsy, unspecified, not intractable, without status epilepticus; J45.909 Unspecified asthma, uncomplicated; Z79.899 Other long term (current) drug therapy; Z88.0 Allergy status to penicillin; Z91.018 Allergy to other foods

== ENCOUNTER → 2017-05-13 | Outpatient (REF) | payer OTHER ==
[~2017-05-13] MED LIST changes: +KEPP10002 PO
== END ==
LOC: M LAB REF 13:23
PROVIDERS: ATTEND Physician Assistant Medical
DX: G40.909 Epilepsy, unspecified, not intractable, without status epilepticus (principal)

== ENCOUNTER → 2017-06-22 | Outpatient (REF) | payer OTHER ==
[2017-06-22 13:57] LABS: MEAN CORPUSCULAR HGB CONC 33.8 g/dl (32.0-36.5); MEAN CORPUSCULAR VOLUME 85.9 fl (80.0-96.0); RED CELL DISTRIBUTION WIDTH 13.3 % (11.5-14.5); WHITE BLOOD COUNT 8.9 K/mm3 (4.0-10.0)
[2017-06-22 16:54] LABS: ALBUMIN 4.2 GM/DL (3.2-5.2); ALBUMIN/GLOBULIN RATIO 1.11 (1.00-1.93); ALKALINE PHOSPHATASE 106 U/L (45-117); ALT/SGPT 15 U/L (12-78); ANION GAP 8 MEQ/L (8-16); AST/SGOT 10 U/L (15-37); BILIRUBIN,TOTAL 0.5 MG/DL (0.2-1.0); BLOOD UREA NITROGEN 13 MG/DL (7-18); CALCIUM LEVEL 9.5 MG/DL (8.5-10.1); CARBON DIOXIDE LEVEL 27 MEQ/L (21-32); CHLORIDE LEVEL 106 MEQ/L (98-107); CHOLESTEROL LEVEL 150 MG/DL (<200); CREATININE FOR GFR 0.75 MG/DL (0.55-1.02); GLOMERULAR FILTRATION RATE > 60.0 (>60); GLUCOSE, FASTING 78 MG/DL (70-105); POTASSIUM SERUM 4.6 MEQ/L (3.5-5.1); SODIUM LEVEL 141 MEQ/L (136-145); TRIGLYCERIDES LEVEL 78 MG/DL (<150)
== END ==
LOC: M LAB REF 13:12
PROVIDERS: ATTEND Advanced Practice Midwife
DX: E66.09 Other obesity due to excess calories (principal)

== ENCOUNTER 2017-07-08 23:30 | Emergency (ER) | payer OTHER ==
[~2017-07-08] VITALS: Ht 160 cm; Wt 100.0 kg
[2017-07-08 23:30] VITALS: BP 123/84
[2017-07-08] MEDS ORDERED: KEPP10002 PO (23:38)
[2017-07-09] MEDS ORDERED: levETIRAcetam 250MG TABLET (KEPPRA) PO ONE
== END 2017-07-09 00:08 | disposition home or self-care (01) ==
LOC: M ED 23:30
DX: G40.909 Epilepsy, unspecified, not intractable, without status epilepticus (principal); Z79.899 Other long term (current) drug therapy; Z88.0 Allergy status to penicillin; Z91.018 Allergy to other foods

== ENCOUNTER → 2018-01-19 | Outpatient (REF) | payer OTHER, SELFPAY ==
[2018-01-19 11:32] LABS: INFLUENZA A AMPLIFICATION NEGATIVE (NEGATIVE); INFLUENZA B AMPLIFICATION NEGATIVE (NEGATIVE)
== END ==
LOC: M LAB REF 10:39
DX: J11.1 Influenza due to unidentified influenza virus with other respiratory manifestations (principal)
CPT/HCPCS: 87502

== ENCOUNTER 2018-04-13 21:32 | Emergency (ER) | payer OTHER ==
[2018-04-13] MEDS: MECLIZINE 25 MG TABLET PO (22:50)
== END 2018-04-13 23:59 | disposition home or self-care (01) ==
LOC: M ED 23:59
DX: H81.399 Other peripheral vertigo, unspecified ear (principal); J30.9 Allergic rhinitis, unspecified; R56.9 Unspecified convulsions; Z88.0 Allergy status to penicillin; Z91.018 Allergy to other foods; Z79.899 Other long term (current) drug therapy
CPT/HCPCS: 99283

== ENCOUNTER → 2018-06-16 | Outpatient (CLI) | payer OTHER ==
[2018-06-20 00:07] LABS: LEVETIRACETAM (KEPPRA) 15.7 ug/mL (10.0-40.0)
== END ==
LOC: M LAB 17:14
DX: R56.9 Unspecified convulsions (principal)
CPT/HCPCS: 80180

== ENCOUNTER → 2019-06-12 | Outpatient (REF) | payer OTHER ==
[~2019-06-12] MED LIST changes: -ACET50TA PO; +CLAR1TAB2 PO; -DOCU10ELUD OR; +DOCU5LIQ OR; +FLUTISP; +MAPA500T17 PO; +MAPA500T2 PO; +MECL1CHW PO; +MIRE1IUD IU; -QVAR0.07 IN; +QVAR40AE13 IN
== END ==
LOC: M LAB REF 13:07
PROVIDERS: ATTEND Obstetrics & Gynecology
DX: R30.0 Dysuria (principal)

== ENCOUNTER → 2019-10-02 | Outpatient (REF) | payer OTHER | LOC: M LABNEURO 08:45 | PROVIDERS: ATTEND Physician Assistant Medical | DX: R56.9 Unspecified convulsions (principal) ==

== ENCOUNTER → 2019-11-05 | Outpatient (REF) | payer OTHER ==
[2019-11-05 14:55] LABS: INFLUENZA A AMPLIFICATION NEGATIVE (NEGATIVE); INFLUENZA B AMPLIFICATION NEGATIVE (NEGATIVE)
== END ==
LOC: M LAB REF 14:12
PROVIDERS: ATTEND Physician Assistant Medical
DX: J11.1 Influenza due to unidentified influenza virus with other respiratory manifestations (principal)

== ENCOUNTER → 2020-03-18 | Outpatient (REF) | payer OTHER ==
[2020-03-18 19:08] LABS: BASO # 0.1 10^3/uL (0.0-0.2); BASO % 0.7 % (0.0-1.0); EOS # 0.3 10^3/uL (0.0-0.5); EOS % 3.1 % (0.0-3.0); HEMATOCRIT 41.3 % (36.0-47.0); HEMOGLOBIN 13.5 g/dl (12.0-15.5); LYMPH # 3.3 10^3/uL (1.5-5.0); LYMPH % 30.7 % (24.0-44.0); MEAN CORPUSCULAR HEMOGLOBIN 29.6 pg (27.0-33.0); MEAN CORPUSCULAR HGB CONC 32.7 g/dl (32.0-36.5); MEAN CORPUSCULAR VOLUME 90.6 fl (80.0-96.0); MONO # 0.8 10^3/uL (0.0-0.8); MONO % 7.3 % (0.0-5.0); NEUTROPHILS # 6.2 10^3/uL (1.5-8.5); NEUTROPHILS % 57.9 % (36.0-66.0); PLATELET COUNT, AUTOMATED 192 10^3/uL (150-450); RED BLOOD COUNT 4.56 10^6/uL (4.00-5.40); WHITE BLOOD COUNT 10.6 10^3/uL (4.0-10.0)
[2020-03-18 19:36] LABS: ALT/SGPT 22 U/L (12-78); BILIRUBIN,TOTAL 0.4 MG/DL (0.2-1.0); BLOOD UREA NITROGEN 12 MG/DL (7-18); CALCIUM LEVEL 8.7 MG/DL (8.5-10.1); CARBON DIOXIDE LEVEL 26 MEQ/L (21-32); CHLORIDE LEVEL 107 MEQ/L (98-107); CREATININE FOR GFR 0.87 MG/DL (0.55-1.30); GLOMERULAR FILTRATION RATE > 60.0 (>60); GLUCOSE, FASTING 80 MG/DL (70-100); POTASSIUM SERUM 4.5 MEQ/L (3.5-5.1); SODIUM LEVEL 139 MEQ/L (136-145); TOTAL 25(OH) VITAMIN D 18.2 NG/ML (30.0-100.0); TOTAL PROTEIN 7.6 GM/DL (6.4-8.2); VITAMIN B12 LEVEL 314 PG/ML
== END ==
LOC: M LAB REF 17:20
PROVIDERS: ATTEND Physician Assistant Medical
DX: R53.83 Other fatigue (principal); R56.9 Unspecified convulsions

== ENCOUNTER → 2020-12-20 | Outpatient (CLI) | payer OTHER ==
[2020-12-20 13:04] LABS: BASO % 0.5 % (0.0-1.0); EOS # 0.2 10^3/uL (0.0-0.5); EOS % 3.6 % (0.0-3.0); HEMATOCRIT 39.7 % (36.0-47.0); HEMOGLOBIN 13.3 g/dl (12.0-15.5); MEAN CORPUSCULAR HEMOGLOBIN 29.8 pg (27.0-33.0); MEAN CORPUSCULAR HGB CONC 33.5 g/dl (32.0-36.5); MONO # 0.7 10^3/uL (0.0-0.8); MONO % 10.6 % (0.0-5.0); NEUTROPHILS # 3.2 10^3/uL (1.5-8.5); PLATELET COUNT, AUTOMATED 172 10^3/uL (150-450); RED BLOOD COUNT 4.46 10^6/uL (4.00-5.40); WHITE BLOOD COUNT 6.1 10^3/uL (4.0-10.0)
[2020-12-20 13:31] LABS: ALBUMIN 3.7 GM/DL (3.2-5.2); ALT/SGPT 24 U/L (12-78); BILIRUBIN,TOTAL 0.4 MG/DL (0.2-1.0); BLOOD UREA NITROGEN 9 MG/DL (7-18); CALCIUM LEVEL 9.2 MG/DL (8.5-10.1); CARBON DIOXIDE LEVEL 28 MEQ/L (21-32); CHLORIDE LEVEL 107 MEQ/L (98-107); GLOMERULAR FILTRATION RATE > 60.0 (>60); GLUCOSE, FASTING 117 MG/DL (70-100); POTASSIUM SERUM 4.2 MEQ/L (3.5-5.1); SODIUM LEVEL 140 MEQ/L (136-145); TOTAL PROTEIN 7.2 GM/DL (6.4-8.2)
[2020-12-22 10:50] LABS: VITAMIN B12 LEVEL 372 PG/ML (247-911)
[2020-12-22 10:52] LABS: FOLATE 8.9 NG/ML (>5.4)
== END ==
LOC: M LAB 12:18
PROVIDERS: ATTEND Physician Assistant Medical
DX: R56.9 Unspecified convulsions (principal); R53.83 Other fatigue; E55.9 Vitamin D deficiency, unspecified; E53.8 Deficiency of other specified B group vitamins

== ENCOUNTER → 2021-10-16 | Outpatient (REF) | payer OTHER | LOC: M LAB REF 16:27 | PROVIDERS: ATTEND Physician Assistant Medical | DX: G40.909 Epilepsy, unspecified, not intractable, without status epilepticus (principal); E55.9 Vitamin D deficiency, unspecified ==

== ENCOUNTER → 2022-04-09 | Outpatient (CLI) | payer OTHER ==
[~2022-04-09] MED LIST changes: +PROHANCE 279.3MG/ML 15ML VIAL As Ordered ONE; +PROHANCE 279.3MG/ML 5ML VIAL As Ordered ONE
== END ==
LOC: M RAD 15:46
PROVIDERS: ATTEND Psychiatry & Neurology Neurology
DX: G40.89 Other seizures (principal)
CPT/HCPCS: 70553; A9576

== ENCOUNTER → 2022-05-05 | Outpatient (REF) | payer OTHER ==
[~2022-05-05] MED LIST changes: -PROHANCE 279.3MG/ML 15ML VIAL As Ordered ONE; -PROHANCE 279.3MG/ML 5ML VIAL As Ordered ONE
[2022-05-05 17:47] LABS: BASO # 0.1 10^3/uL (0.0-0.2); BASO % 0.5 % (0.0-1.0); EOS # 0.2 10^3/uL (0.0-0.5); EOS % 1.3 % (0.0-3.0); HEMATOCRIT 41.1 % (36.0-47.0); HEMOGLOBIN 13.5 g/dl (12.0-15.5); LYMPH % 31.7 % (24.0-44.0); MEAN CORPUSCULAR HEMOGLOBIN 29.7 pg (27.0-33.0); MEAN CORPUSCULAR HGB CONC 32.8 g/dl (32.0-36.5); MEAN CORPUSCULAR VOLUME 90.5 fl (80.0-96.0); MONO # 0.7 10^3/uL (0.0-0.8); MONO % 5.6 % (2.0-8.0); NEUTROPHILS # 7.6 10^3/uL (1.5-8.5); NEUTROPHILS % 60.5 % (36.0-66.0); PLATELET COUNT, AUTOMATED 209 10^3/uL (150-450); RED BLOOD COUNT 4.54 10^6/uL (4.00-5.40); WHITE BLOOD COUNT 12.5 10^3/uL (4.0-10.0)
[2022-05-05 17:50] LABS: ALBUMIN 3.9 GM/DL (3.2-5.2); ALT/SGPT 25 U/L (12-78); BILIRUBIN,TOTAL 0.4 MG/DL (0.2-1.0); BLOOD UREA NITROGEN 10 MG/DL (7-18); CALCIUM LEVEL 9.2 MG/DL (8.5-10.1); CARBON DIOXIDE LEVEL 22 MEQ/L (21-32); CHLORIDE LEVEL 102 MEQ/L (98-107); CREATININE FOR GFR 0.94 MG/DL (0.55-1.30); FREE T4 1.23 NG/DL (0.76-1.46); GLOMERULAR FILTRATION RATE > 60.0 (>60); GLUCOSE, FASTING 86 MG/DL (70-100); SODIUM LEVEL 136 MEQ/L (136-145); TOTAL PROTEIN 7.6 GM/DL (6.4-8.2)
[2022-05-05 17:54] LABS: TOTAL 25(OH) VITAMIN D 22.1 NG/ML (30.0-100.0)
== END ==
LOC: M LAB REF 16:18
PROVIDERS: ATTEND Nurse Practitioner Family
DX: R53.83 Other fatigue (principal); R63.5 Abnormal weight gain

== ENCOUNTER → 2022-06-23 | Outpatient (REF) | payer OTHER ==
[2022-06-23 16:58] LABS: BASO # 0.1 10^3/uL (0.0-0.2); BASO % 0.5 % (0.0-1.0); EOS # 0.4 10^3/uL (0.0-0.5); EOS % 3.3 % (0.0-3.0); HEMATOCRIT 40.4 % (36.0-47.0); HEMOGLOBIN 13.3 g/dl (12.0-15.5); LYMPH # 4.1 10^3/uL (1.5-5.0); MEAN CORPUSCULAR HEMOGLOBIN 29.5 pg (27.0-33.0); MEAN CORPUSCULAR HGB CONC 32.9 g/dl (32.0-36.5); MEAN CORPUSCULAR VOLUME 89.6 fl (80.0-96.0); MONO # 0.8 10^3/uL (0.0-0.8); NEUTROPHILS # 6.4 10^3/uL (1.5-8.5); NEUTROPHILS % 53.9 % (36.0-66.0); PLATELET COUNT, AUTOMATED 200 10^3/uL (150-450); RED BLOOD COUNT 4.51 10^6/uL (4.00-5.40); WHITE BLOOD COUNT 11.8 10^3/uL (4.0-10.0)
== END ==
LOC: M LAB REF 16:16
PROVIDERS: ATTEND Nurse Practitioner Family
DX: D72.829 Elevated white blood cell count, unspecified (principal)

== ENCOUNTER → 2023-03-30 | Outpatient (CLI) | payer OTHER ==
[~2023-03-30] MED LIST changes: +FLUT50SP17; -FLUTISP
== END ==
LOC: M RAD 16:24
PROVIDERS: ATTEND Obstetrics & Gynecology
DX: Z30.431 Encounter for routine checking of intrauterine contraceptive device (principal)

== ENCOUNTER → 2023-07-13 | Outpatient (CLI) | payer OTHER | LOC: M PLAIMG 12:02 | PROVIDERS: ATTEND Physician Assistant | DX: J32.8 Other chronic sinusitis (principal) ==

== ENCOUNTER → 2024-09-12 | Outpatient (REF) | payer OTHER ==
[~2024-09-12] MED LIST changes: -FLUT50SP17; +FLUTISP
== END ==
LOC: M WUC 18:42
PROVIDERS: ATTEND Student in an Organized Health Care Education/Training Program
DX: J06.9 Acute upper respiratory infection, unspecified (principal)

== ENCOUNTER → 2024-10-25 | Outpatient (REF) | payer OTHER ==
[2024-10-25 13:49] LABS: ALBUMIN 3.7 G/DL (3.2-5.2); ALKALINE PHOSPHATASE 93 U/L (35-104); ALT/SGPT 13 U/L (7.0-40); AST/SGOT 9 U/L (<34); BILIRUBIN,TOTAL 0.3 MG/DL (0.3-1.2); BLOOD UREA NITROGEN 14 MG/DL (9-23); CALCIUM LEVEL 9.3 MG/DL (8.5-10.1); CARBON DIOXIDE LEVEL 26 MMOL/L (20-31); CHLORIDE LEVEL 105 MMOL/L (98-107); CREATININE FOR GFR 0.77 MG/DL (0.55-1.30); GLOMERULAR FILTRATION RATE > 60.0 (>60); GLUCOSE, FASTING 95 MG/DL (60-100); POTASSIUM SERUM 4.1 MMOL/L (3.5-5.1); RHEUMATOID FACTOR QUANT 8.9 IU/ML (<14); SODIUM LEVEL 139 MMOL/L (136-145); TOTAL PROTEIN 7.5 G/DL (5.7-8.2)
[2024-10-25 13:51] LABS: THYROID STIMULATING HORMONE 2.672 uIU/ML (0.55-4.78); TOTAL 25(OH) VITAMIN D 15.1 NG/ML (20.0-100.0)
[2024-10-25 13:52] LABS: BASO # 0.1 10^3/uL (0.0-0.2); BASO % 0.5 % (0.0-1.0); EOS # 0.1 10^3/uL (0.0-0.5); EOS % 0.9 % (0.0-3.0); HEMATOCRIT 40.1 % (36.0-47.0); HEMOGLOBIN 13.3 g/dl (12.0-15.5); LYMPH # 3.4 10^3/uL (1.5-5.0); LYMPH % 34.4 % (24.0-44.0); MEAN CORPUSCULAR HEMOGLOBIN 29.7 pg (27.0-33.0); MEAN CORPUSCULAR HGB CONC 33.2 g/dl (32.0-36.5); MEAN CORPUSCULAR VOLUME 89.5 fl (80.0-96.0); MONO # 0.7 10^3/uL (0.0-0.8); MONO % 7.1 % (2.0-8.0); NEUTROPHILS # 5.7 10^3/uL (1.5-8.5); NEUTROPHILS % 56.8 % (36.0-66.0); PLATELET COUNT, AUTOMATED 221 10^3/uL (150-450); RED BLOOD COUNT 4.48 10^6/uL (4.00-5.40)
[2024-10-25 14:01] LABS: ERYTHROCYTE SEDIMENTATION RATE 14 mm/hr (0-20)
[2024-10-29 13:38] LABS: ANA SCREEN, IFA NEGATIVE (NEGATIVE)
[2024-10-31 04:02] LABS: LEVETIRACETAM (KEPPRA) 28.9 mcg/mL (6.0-46.0)
== END ==
LOC: M LAB REF 13:11
PROVIDERS: ATTEND Psychiatry & Neurology Neurology
DX: R51.9 Headache, unspecified (principal); R56.9 Unspecified convulsions